=== PATIENT | female | born 1990 | race American Indian/Alaskan Native ===

== ENCOUNTER 2019-10-28 10:17 | Emergency (ER) | payer SELFPAY ==
[2019-10-28] MEDS ORDERED: SODIUM CHLORIDE 0.9% 1000 ML 1,000 ML IV ONE (10:33)
[2019-10-28] MEDS ORDERED: levETIRAcetam 1000 MG/NS 0.75% 1,000 MG/100 ML BAG IV ONE (10:33)
--- NOTE | 2019-10-28 10:47 | Emergency Department Report ---
ED Seizure HPI - General Stated Complaint: SEIZURE Time Seen by Provider: 10/28/19 10:26 - History of Present Illness Initial Comments: Patient is 29 years old female with no significant past medical history. Patient presented to the ER via EMS from home for evaluation of possible seizure. Patient stated that she went to bed well last night however she woke up on the floor. Boyfriend witnessed a generalized tonic-clonic seizure. Patient also stated that she bit her tongue. Patient had similar episode 1 month ago for which she went to a [facility] had a CT brain and she was told it was negative with a unremarkable blood work also however patient was not started on antiseizure medicine. Patient denied any fever, chills, neck pain, weakness numbness or tingling sensation. Patient also denied any chest pain or abdominal pain. Patient stated that she is back to her baseline normal. MD Complaint: possible seizure, loss of consciousness -: Sudden, This morning Description of Episode: loss of consciousness, tonic-clonic movement, bladder incontinence, post-event confusion Witnessed:: Yes Trauma: No Place: home Possible Precipitating Event: none Associated Symptoms: denies other symptoms Treatments Prior to Arrival: none ED Review of Systems ROS: Stated complaint: SEIZURE Other details as noted in HPI Comment: All other systems reviewed and negative Constitutional: denies: chills, fever Respiratory: denies: cough, shortness of breath, SOB with exertion, SOB at rest, wheezing Cardiovascular: denies: chest pain, palpitations Gastrointestinal: denies: abdominal pain, nausea, vomiting, diarrhea Musculoskeletal: denies: back pain Neurological: denies: headache, weakness, numbness, paresthesias, confusion, abnormal gait Psychiatric: denies: depression, homicidal thoughts, suicidal thoughts ED Physical Exam - General General appearance: alert, in no apparent distress - Head Head exam: Present: atraumatic, normocephalic, normal inspection - Eye Eye exam: Present: normal appearance, PERRL - ENT ENT exam: Present: normal exam, normal orophraynx, mucous membranes moist - Neck Neck exam: Present: normal inspection, full ROM. Absent: tenderness, meningismus, lymphadenopathy, thyromegaly - Respiratory Respiratory exam: Present: normal lung sounds bilaterally - Cardiovascular Cardiovascular Exam: Present: regular rate, normal rhythm, normal heart sounds - GI/Abdominal GI/Abdominal exam: Present: soft, normal bowel sounds. Absent: distended, tenderness, guarding, rebound, rigid, organomegaly, mass, bruit, pulsatile mass, hernia - Extremities Exam Extremities exam: Present: normal inspection, full ROM, normal capillary refill. Absent: pedal edema, calf tenderness - Back Exam Back exam: Present: normal inspection, full ROM. Absent: CVA tenderness (R), CVA tenderness (L) - Neurological Exam Neurological exam: Present: alert, oriented X3, CN II-XII intact, normal gait, reflexes normal. Absent: motor sensory deficit - Psychiatric Psychiatric exam: Present: normal mood. Absent: suicidal ideation - Skin Skin exam: Present: warm, intact, normal color ED Course Vital Signs 10/28/19 10/28/19 10/28/19 10:32 10:45 11:00 Temperature Pulse Rate Respiratory Rate Blood Pressure 127/81 103/58 Blood Pressure [Left] O2 Sat by Pulse 96 98 99 Oximetry 10/28/19 10/28/19 10/28/19 11:15 11:20 11:35 Temperature 98.3 F Pulse Rate 60 Respiratory 18 Rate Blood Pressure 127/81 127/81 Blood Pressure 128/64 [Left] O2 Sat by Pulse 100 99 100 Oximetry 10/28/19 10/28/19 10/28/19 11:45 12:01 12:15 Temperature Pulse Rate Respiratory Rate Blood Pressure 127/81 127/81 127/81 Blood Pressure [Left] O2 Sat by Pulse 100 99 99 Oximetry 10/28/19 10/28/19 10/28/19 12:30 12:45 13:01 Temperature Pulse Rate Respiratory 18 Rate Blood Pressure 103/58 78/52 121/57 Blood Pressure [Left] O2 Sat by Pulse 100 99 100 Oximetry ED Medical Decision Making - Lab Data Result diagrams: 10/28/19 10:38 10/28/19 10:38 - Medical Decision Making Patient is 29 years old female with no significant past medical history. Patient presented to the ER via EMS from home for evaluation of possible seizure. Patient stated that she went to bed well last night however she woke up on the floor. Boyfriend witnessed a generalized tonic-clonic seizure. Patient also stated that she bit her tongue. Patient had similar episode 1 month ago for which she went to a [facility] had a CT brain and she was told it was negative with a unremarkable blood work also however patient was not started on antiseizure medicine. Patient denied any fever, chills, neck pain, weakness numbness or tingling sensation. Patient also denied any chest pain or abdominal pain. Patient stated that she is back to her baseline normal. Patient received Keppra 1 g IV in the ER. No seizure activity observed. Labs reviewed and is unremarkable. Since this is a second episode of seizure I will start patient on Keppra and advised patient to follow-up with her primary care physician for referral to a neurologist. Patient also advised to return to the ER if she develop any new symptoms. Critical care attestation.: If time is entered above; I have spent that time in minutes in the direct care of this critically ill patient, excluding procedure time. ED Disposition Clinical Impression: New onset seizure Disposition: - TO HOME OR SELFCARE Is pt being admited?: No Condition: Stable Instructions: New-Onset Seizure in Adults (ED) Referrals: JOSE WELLS MD [Referring] - 3-5 Days
[2019-10-28 11:12] LABS: Basophils % (Auto) 0.4 % (0.0-1.8); Eosinophils # (Auto) 0.1 K/mm3 (0.0-0.4); Eosinophils % (Auto) 1.4 % (0.0-4.3); Hematocrit 40.2 % (30.3-42.9); Lymphocytes % (Auto) 23.2 % (13.4-35.0); Mean Corpuscular HGB Conc 32 % (30-34); Mean Corpuscular Volume 80 fl (79-97); Monocytes # (Auto) 0.8 K/mm3 (0.0-0.8); Monocytes % (Auto) 8.9 % (0.0-7.3); Platelet Count 283 K/mm3 (140-440); Red Blood Count 5.01 M/mm3 (3.65-5.03); Red Cell Distribution Width 14.9 % (13.2-15.2)
[2019-10-28 11:32] LABS: BUN/Creatinine Ratio 15; Blood Urea Nitrogen 12 mg/dL (7-17); Calcium 8.9 mg/dL (8.4-10.2)
[2019-10-28 11:33] LABS: Alanine Aminotransferase 12 units/L (7-56); Hemolysis Index 6
[2019-10-28 11:42] LABS: Bilirubin,Direct < 0.2 mg/dL (0-0.2)
[2019-10-28 13:29] LABS: Bilirubin,Urine NEG (Negative); Blood,Urine NEG (Negative); Color,Urine Colorless (Yellow); Protein,Urine <15 mg/dL mg/dL (Negative); Urobilinogen,Urine < 2.0 mg/dL (<2.0); WBC,Urine < 1.0 /HPF (0.0-6.0)
[2019-10-28 13:37] LABS: Amphetamine Screen,Urine Negative; Benzodiazepines Screen,Urine Negative; Cocaine Screen,Urine Negative; Methadone Screen,Urine Negative; Opiate Screen,Urine Negative
[2019-10-28 13:58] LABS: Cannabinoid Screen,Urine Positive
[2019-10-28 16:42] VITALS: BP 118/68
== END 2019-10-28 16:40 | disposition home or self-care (01) ==
LOC: ED 10:17
DX: G40.909 Epilepsy, unspecified, not intractable, without status epilepticus (principal)
CPT/HCPCS: 36415; 80048; 80076; 80307; 81001; 84703; 85025; 96365; 96366; 99284; J1953; J7030; 80320; G0480